=== PATIENT | male | born 2000 | race Caucasian/White ===

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

== ENCOUNTER → 2022-05-21 11:16 | Outpatient (CLI) | payer OTHER, SELFPAY ==
[2022-05-21 23:10] LABS: Urine N gonorrhoeae NOT DETECTED
[2022-05-21 23:21] LABS: Urine Chlamydia NOT DETECTED
[2022-05-22 16:21] LABS: HIV 1 & 2 Ab/Ag 4th Gen Combo NEGATIVE (NEGATIVE)
== END ==
PROVIDERS: PCP Physician Assistant Medical; Visit Provider Family Medicine
DX: Z00.00 Encounter for general adult medical examination without abnormal findings (principal); F90.9 Attention-deficit hyperactivity disorder, unspecified type
CPT/HCPCS: 87389; 87491; 87591